=== PATIENT | female | born 1935 | race Caucasian/White ===

== ENCOUNTER 2016-10-26 13:09 | Emergency (ER) | payer OTHER, BC ==
--- NOTE | 2016-10-26 13:20 | PDOC ---
History of Present Illness - General Chief Complaint: Injury Stated Complaint: BACK PAIN Time Seen by Provider: 10/26/16 13:20 History Source: Patient - History of Present Illness Initial Comments: 10/26/16 13:53 Pt presents to the ED complaining of lower back pain that began after a trip and fall 5 days ago. Patient had a mechanical trip and fall and hit her lower back. Since then, she has been complaining of lower back pain. Pain is constant, severe, worse with twisting movements of the lower back. History of chronic lower back pain--states that this pain is similar to her chronic pain, but is worse than usual. Patient takes neurontin for her chronic pain, which she reports is not helping. Patient also reports decreased urine output--has only had " a few teaspoons" of urine every day for the last 5 days, despite taking lasix. Denies chest or abdominal pain, denies fever. 10/26/16 13:57 Past History - Past Medical History Allergies/Adverse Reactions: Allergies Allergy/AdvReac Type Severity Reaction Status Date / Time Fish Containing Products Allergy Mild Nausea Verified 10/26/16 13:17 [Fish Product Derivatives] lisinopril AdvReac cough Verified 10/26/16 13:17 ADHESIVE TAPE AdvReac Severe Rash Uncoded 10/26/16 13:17 Home Medications: Ambulatory Orders Vits A,C,E/Lutein/Minerals [Ocuvite With Lutein Tablet] 1 each PO AM tablet Levothyroxine [Synthroid -] 25 mcg PO DAILY 10/26/16 Losartan Potassium 50 mg PO DAILY 10/26/16 Rosuvastatin Calcium [Crestor] 10 mg PO ASDIR 10/26/16 Anemia: No Asthma: No Cancer: No Cardiac Disorders: Yes (Aortic Valve Replacement 2011) CVA: No COPD: No CHF: Yes Dementia: No Diabetes: No GI Disorders: No Disorders: No HTN: Yes Hypercholesterolemia: Yes Liver Disease: No Seizures: No Thyroid Disease: Yes - Surgical History Abdominal Surgery: No Appendectomy: No Cardiac Surgery: Yes (Aortic Valve Replacement) Cholecystectomy: No Lung Surgery: No Neurologic Surgery: No Orthopedic Surgery: No - Immunization History Td Vaccination: No - Psycho/Social/Smoking Cessation Hx Anxiety: No Suicidal Ideation: No Smoking Status: Yes Smoking History: Former smoker Years of Tobacco Use: 20 (stopped smoking 20 years ago) Have you smoked in the past 12 months: No Number of Cigarettes Smoked Daily: 0 If you are a former smoker, when did you quit?: 1990 Hx Alcohol Use: No Drug/Substance Use Hx: No Substance Use Type: None Hx Substance Use Treatment: No Review of Systems - Review of Systems Able to Perform ROS?: Yes Constitutional: No: Symptoms Reported, See HPI, Chills, Diaphoresis, Fever, Loss of Appetite, Malaise, Night Sweats, Weakness, Weight Stable, Unintentional Wgt. Loss, Unexplained wgt Loss, Other HEENTM: No: Symptoms Reported, See HPI, Eye Pain, Blurred Vision, Tearing, Recent change in vision, Double Vision, Cataracts, Ear Pain, Ocular Prothesis, Ear Discharge, Nose Pain, Nose Congestion, Tinnitus, Nose Bleeding, Hearing Loss , Throat Pain, Throat Swelling, Mouth Pain, Dental Problems, Difficulty Swallowing, Mouth Swelling, Other Respiratory: No: Symptoms reported, See HPI, Cough, Orthopnea, Shortness of Breath, SOB with Exertion, SOB at Rest, Stridor, Wheezing, Productive cough, Hemoptysis, Other ABD/GI: No: Symptoms Reported, See HPI, Abdominal Distended, Abd. Pain w/ defecation, Blood Streaked Bowels, Constipated, Diarrhea, Difficulty Swallowing , Nausea, Poor Appetite, Poor Fluid Intake, Rectal Bleeding, Vomiting, Indigestion, Abdominal cramping, Tarry Stools, Other All Other Systems: Reviewed and Negative *Physical Exam - Physical Exam General Appearance: Yes: Nourished, Appropriately Dressed HEENT: positive: EOMI, Normal ENT Inspection Neck: positive: Supple Respiratory/Chest: positive: Lungs Clear, Normal Breath Sounds Cardiovascular: positive: Regular Rhythm, Regular Rate, S1, S2 Gastrointestinal/Abdominal: positive: Normal Bowel Sounds. negative: Tender, Flat, Soft, Organomegaly, Pulsatile Mass, Increased Bowel Sounds, Decreased BS, Protuberent, Distended, Guarding, Rebound, Tenderness, Hernia, Mass, Hepatomegaly, Spleenomegaly, Other Musculoskeletal: positive: Decreased Range of Motion. negative: Normal Inspection, CVA Tenderness, CVA Tenderness (R), CVA Tenderness (L), Muscle Spasm , Vertebral Tenderness, Other Extremity: positive: Normal Inspection Integumentary: positive: Normal Color Neurologic: positive: Fully Oriented, Alert, Normal Mood/Affect, Motor Strength 5/5 ED Treatment Course - LABORATORY CBC & Chemistry Diagram: 10/26/16 13:59 10/26/16 13:59 Medical Decision Making - Medical Decision Making 10/26/16 14:00 Pt presents to the ED complaining of lower back pain consistent with, but worse than, her chronic lower back pain. Also complaining of decreased urine output. + tenderness over sacrum without deformity or ecchymosis on my exam. Neurologically intact. Will check labs to rule out renal disease, check xrays, give morphine, reassess. 10/26/16 16:50 *DC/Admit/Observation/Transfer Diagnosis at time of Disposition: Back pain Qualifiers: Back pain location: low back pain Chronicity: chronic Back pain laterality: bilateral Sciatica presence: without sciatica Qualified Code(s): M54.5 - Low back pain; G89.29 - Other chronic pain - Discharge Dispostion Disposition: HOME Condition at time of disposition: Good Admit: No - Patient Instructions Printed Discharge Instructions: DI for Low Back Pain Additional Instructions: return to the ED for severe pain, pain with fever, weakness or numbness of your legs or feet, unable to control your bowels or your bladder.
[2016-10-26 13:26] VITALS: TEMP 98.4; BMI 31.6
[2016-10-26] MEDS ORDERED: morphine CARPU-JECT 4 MG/1 ML DISP.SYRIN IVPUSH ONE (13:48)
[2016-10-26] MEDS ORDERED: morphine CARPU-JECT 4 MG/1 ML DISP.SYRIN ONE ×2 (14:01→16:33)
[2016-10-26 14:49] LABS: BASOPHIL 0.2 % (0-2.0); EOSINOPHIL 3.2 % (0-4.5); MCH 30.5 pg (25.7-33.7); MEAN CELL VOLUME 89.5 fl (80-96); MEAN PLT VOLUME 8.2 fl (7.5-11.1); NEUTROPHILS 75.9 % (42.8-82.8); PLATELET COUNT 191 K/MM3 (134-434); RDW 16.1 % (11.6-15.6); WHITE BLOOD COUNT 8.1 K/mm3 (4.0-10.8)
[2016-10-26 14:56] LABS: ALBUMIN 3.6 g/dl (3.5-5.0); ALK PHOS 71 U/L (32-92); ANION GAP 7 (8-16); BILIRUBIN,TOTAL 0.6 mg/dl (0.2-1.0); CALCIUM 8.9 mg/dl (8.4-10.2); CO2 27 mmol/L (22-28); CREATININE 0.7 mg/dl (0.6-1.3); GLUCOSE,RANDOM 115 mg/dl (74-106); SGOT/AST 16 U/L (10-42); SGPT/ALT 11 U/L (10-40); TOT PROT 6.2 g/dl (6.4-8.3)
[2016-10-26] MEDS ORDERED: KETOROLAC TROMETHAMINE 30 MG/1 ML VIAL IVPUSH ONE (15:20)
[2016-10-26] MEDS ORDERED: KETOROLAC TROMETHAMINE 30 MG/1 ML VIAL ONE (15:44)
[2016-10-26] MEDS ORDERED: morphine CARPU-JECT 2 MG/1 ML DISP.SYRIN IVPUSH ONE (16:23)
[2016-10-26] MEDS ORDERED: morphine CARPU-JECT 2 MG/1 ML DISP.SYRIN ONE (16:32)
[2016-10-26 17:10] VITALS: BP 132/55; PULSE 76
== END 2016-10-26 17:10 | disposition home or self-care (01) ==
LOC: FER 13:09
PROC: 3E0333Z Introduction of Anti-inflammatory into Peripheral Vein, Percutaneous Approach (ICD-10-PCS; principal; 2016-10-26)
PROC: 3E033NZ Introduction of Analgesics, Hypnotics, Sedatives into Peripheral Vein, Percutaneous Approach (ICD-10-PCS; 2016-10-26)
DX: M54.5 Low back pain (principal); G89.29 Other chronic pain; Z95.2 Presence of prosthetic heart valve; Z79.01 Long term (current) use of anticoagulants; I50.9 Heart failure, unspecified; Z87.891 Personal history of nicotine dependence
CPT/HCPCS: 36415; 72100-TC; 80053; 85025; 99284-25

== ENCOUNTER 2022-04-17 14:01 | Observation (INO) | payer OTHER, BC ==
[2022-04-17] MEDS ORDERED: ACETAMINOPHEN 325 MG TABLET (FP) PO ONE (14:30)
[2022-04-17] MEDS ORDERED: ACETAMINOPHEN 325 MG TABLET (FP) ONE (14:33)
[2022-04-17 16:21] LABS: HEMATOCRIT 29.5 % (32.4-45.2); HEMOGLOBIN 9.7 G/dL (10.7-15.3); MCH 30.1 pg (25.7-33.7); MCHC 32.8 g/dl (32.0-36.0); MEAN CELL VOLUME 91.7 fl (80-96); MEAN PLT VOLUME 8.8 fl (7.5-11.1); PLATELET COUNT 185.1 10^3/uL (134-434); RBC 3.22 10^6/uL (3.60-5.2); RDW 16.3 % (11.6-15.6); WHITE BLOOD COUNT 7.3 10^3/uL (4.0-10.8)
[2022-04-17 16:36] LABS: ALBUMIN 3.6 g/dl (3.4-5.0); BILIRUBIN,TOTAL 0.6 mg/dl (0.2-1); CALCIUM 8.9 mg/dl (8.5-10); CREATININE 0.9 mg/dl (0.55-1.3)
[2022-04-17 18:09] LABS: PLATELET ESTIMATE ADEQUATE
[2022-04-17 21:16] VITALS: BMI 28.6
[2022-04-17] MEDS: CARVEDILOL 6.25 MG TABLET (FP) PO SCH (21:46)
[2022-04-17] MEDS: ROSUVASTATIN CA 5 MG TABLET PO SCH (21:46)
[2022-04-17] MEDS: MEMANTINE HCL 10 MG TABLET (FP) PO SCH (21:46)
[2022-04-17] MEDS: GABAPENTIN 300 MG CAPSULE PO SCH (21:46)
[2022-04-17] MEDS ORDERED: traMADol HCL 50 MG TABLET PO SCH (22:00)
[2022-04-18] MEDS: GABAPENTIN 300 MG CAPSULE PO SCH ×3 (06:23→21:41)
[2022-04-18] MEDS ORDERED: traMADol HCL 50 MG TABLET PO PRN (07:17)
[2022-04-18 08:48] LABS: CALCIUM 8.6 mg/dl (8.5-10); CREATININE 0.8 mg/dl (0.55-1.3); MAGNESIUM 2.4 mg/dL (1.8-2.4)
[2022-04-18] MEDS: CARVEDILOL 6.25 MG TABLET (FP) PO SCH ×2 (09:15→21:41)
[2022-04-18] MEDS: PANTOPRAZOLE 40 MG TABLET PO SCH (09:15)
[2022-04-18] MEDS: FUROSEMIDE 40 MG TABLET (FP) PO SCH (09:15)
[2022-04-18] MEDS: ALLOPURINOL 300 MG TABLET (FP) PO SCH (09:16)
[2022-04-18] MEDS: RAMIPRIL 2.5 MG CAPSULE PO SCH (09:16)
[2022-04-18] MEDS: MEMANTINE HCL 10 MG TABLET (FP) PO SCH ×2 (09:16→21:41)
[2022-04-18] MEDS: DONEPEZIL HCL 5 MG TABLET (FP) PO SCH (09:16)
[2022-04-18] MEDS: ASPIRIN 81 MG CHEWABLE TABLETS PO SCH (09:16)
[2022-04-18 09:42] LABS: BASO % 0.8 % (0-2.0); EOS % 6.7 % (0-4.5); HEMATOCRIT 29.1 % (32.4-45.2); HEMOGLOBIN 9.5 GM/dL (10.7-15.3); LYMPH % 14.7 % (8-40); MCH 29.4 pg (25.7-33.7); MCHC 32.6 g/dl (32.0-36.0); MEAN CELL VOLUME 90.3 fl (80-96); MEAN PLT VOLUME 8.4 fl (7.5-11.1); NEUT % 65.8 % (42.8-82.8); PLATELET COUNT 179 10^3/uL (134-434); RBC 3.22 M/mm3 (3.60-5.2); RDW 17.2 % (11.6-15.6); WHITE BLOOD COUNT 5.4 K/mm3 (4.0-10.0)
[2022-04-18 09:47] LABS: EPITHELIAL CELLS FEW /hpf
[2022-04-18] MEDS: ACETAMINOPHEN 500 MG TABLET (FP) PO PRN ×2 (14:56→21:41)
[2022-04-18] MEDS: ROSUVASTATIN CA 5 MG TABLET PO SCH (21:41)
[2022-04-19] MEDS: GABAPENTIN 300 MG CAPSULE PO SCH ×3 (06:07→21:32)
[2022-04-19 08:35] LABS: CALCIUM 8.8 mg/dl (8.5-10); CREATININE 0.7 mg/dl (0.55-1.3); MAGNESIUM 2.2 mg/dL (1.8-2.4); PHOSPHOROUS 3.3 mg/dl (2.5-4.9)
[2022-04-19 09:29] LABS: BASO % 0.9 % (0-2.0); EOS % 8.1 % (0-4.5); HEMATOCRIT 28.7 % (32.4-45.2); HEMOGLOBIN 9.1 GM/dL (10.7-15.3); LYMPH % 19.5 % (8-40); MCH 28.9 pg (25.7-33.7); MCHC 31.8 g/dl (32.0-36.0); MEAN CELL VOLUME 90.9 fl (80-96); MEAN PLT VOLUME 7.8 fl (7.5-11.1); MONO % 12.1 % (3.8-10.2); NEUT % 59.4 % (42.8-82.8); PLATELET COUNT 178 10^3/uL (134-434); RBC 3.16 M/mm3 (3.60-5.2); RDW 17.2 % (11.6-15.6); WHITE BLOOD COUNT 4.7 K/mm3 (4.0-10.0)
[2022-04-19] MEDS: MEMANTINE HCL 10 MG TABLET (FP) PO SCH ×2 (09:36→21:31)
[2022-04-19] MEDS: ASPIRIN 81 MG CHEWABLE TABLETS PO SCH (09:36)
[2022-04-19] MEDS: DONEPEZIL HCL 5 MG TABLET (FP) PO SCH (09:36)
[2022-04-19] MEDS: RAMIPRIL 2.5 MG CAPSULE PO SCH (09:36)
[2022-04-19] MEDS: FUROSEMIDE 40 MG TABLET (FP) PO SCH (09:36)
[2022-04-19] MEDS: CARVEDILOL 6.25 MG TABLET (FP) PO SCH ×2 (09:36→21:32)
[2022-04-19] MEDS: PANTOPRAZOLE 40 MG TABLET PO SCH (09:36)
[2022-04-19] MEDS: ALLOPURINOL 300 MG TABLET (FP) PO SCH (09:37)
[2022-04-19] MEDS: ENOXAPARIN NA (PORCINE) 40 MG/0.4 ML DISP.SYRIN SQ SCH (10:48)
[2022-04-19] MEDS: ROSUVASTATIN CA 5 MG TABLET PO SCH (21:31)
[2022-04-19 21:40] VITALS: RESP 17
[2022-04-20] MEDS: DOCUSATE SODIUM 100 MG CAPSULE (FP) PO SCH ×2 (06:18→13:08)
[2022-04-20] MEDS: GABAPENTIN 300 MG CAPSULE PO SCH ×2 (06:18→13:08)
[2022-04-20] MEDS: CARVEDILOL 6.25 MG TABLET (FP) PO SCH (09:29)
[2022-04-20] MEDS: ALLOPURINOL 300 MG TABLET (FP) PO SCH (09:29)
[2022-04-20] MEDS: ASPIRIN 81 MG CHEWABLE TABLETS PO SCH (09:30)
[2022-04-20] MEDS: ENOXAPARIN NA (PORCINE) 40 MG/0.4 ML DISP.SYRIN SQ SCH (09:30)
[2022-04-20] MEDS: DONEPEZIL HCL 5 MG TABLET (FP) PO SCH (09:30)
[2022-04-20] MEDS: FUROSEMIDE 40 MG TABLET (FP) PO SCH (09:30)
[2022-04-20] MEDS: RAMIPRIL 2.5 MG CAPSULE PO SCH (09:30)
[2022-04-20] MEDS: MEMANTINE HCL 10 MG TABLET (FP) PO SCH (09:30)
[2022-04-20] MEDS: PANTOPRAZOLE 40 MG TABLET PO SCH (09:30)
[2022-04-20 13:28] VITALS: BP 161/50; PULSE 79; TEMP 98.3
== END 2022-04-20 14:10 ==
LOC: FER 14:01 → FM/S 18:05
PROVIDERS: ADMIT Internal Medicine; ATTEND Internal Medicine
PROC: 3E023GC Introduction of Other Therapeutic Substance into Muscle, Percutaneous Approach (ICD-10-PCS; principal; 2022-04-17)
DX: M79.671 Pain in right foot (principal); W10.9XXA Fall (on) (from) unspecified stairs and steps, initial encounter; F03.90 Unspecified dementia, unspecified severity, without behavioral disturbance, psychotic disturbance, mood disturbance, and anxiety; Y93.89 Activity, other specified; Y92.098 Other place in other non-institutional residence as the place of occurrence of the external cause; I11.0 Hypertensive heart disease with heart failure; I50.9 Heart failure, unspecified; R77.8 Other specified abnormalities of plasma proteins; E78.5 Hyperlipidemia, unspecified; Z91.09 Other allergy status, other than to drugs and biological substances; Z91.013 Allergy to seafood; Z88.8 Allergy status to other drugs, medicaments and biological substances
CPT/HCPCS: 0241U-QW; 36415; 70450-TC; 71045-TC-FY; 72125-TC; 72170-TC-FY; 73610-TC-RT-FY; 73630-TC-RT-FY; 73700-TC-RT; 80048; 80053; 81003; 81015; 82607; 82746; 83735; 84100; 84439; 84443; 84484; 85025; 85027; 93005; 96372; 97116-GP; 97162-GP; 99285-25; G0378

== ENCOUNTER 2022-08-21 20:31 | Emergency (ER) | payer OTHER, BC ==
[2022-08-21] MEDS ORDERED: DIPHTH,PERTUSS(ACELL),TET 0.5 ML DISP.SYRIN IM ONE ×2 (20:37→20:54)
[2022-08-21 20:56] VITALS: BP 142/78; PULSE 72; RESP 18; TEMP 98.4; BMI 31.9
== END 2022-08-21 21:06 | disposition home or self-care (01) ==
LOC: FER 20:31
PROC: 3E0234Z Introduction of Serum, Toxoid and Vaccine into Muscle, Percutaneous Approach (ICD-10-PCS; principal; 2022-08-21)
DX: S61.213A Laceration without foreign body of left middle finger without damage to nail, initial encounter (principal); W27.2XXA Contact with scissors, initial encounter
CPT/HCPCS: 90471; 90715; 99282-25

== ENCOUNTER 2022-11-01 12:28 | Inpatient (IN) | payer OTHER, BC ==
[2022-11-01] MEDS ORDERED: SODIUM CHLORIDE 500 ML IV STA (12:55)
[2022-11-01 13:33] LABS: INR 1.22 (0.83-1.09); PROTHROMBIN TIME (PATIENT) 14.1 SEC (9.7-13.0)
[2022-11-01 13:36] LABS: ACTIVATED PTT 29.8 SECONDS (25.2-36.5)
[2022-11-01 13:37] LABS: HEMATOCRIT 26.5 % (32.4-45.2); HEMOGLOBIN 8.4 G/dL (10.7-15.3); MCH 28.4 pg (25.7-33.7); MCHC 31.7 g/dl (32.0-36.0); MEAN CELL VOLUME 89.6 fl (80-96); MEAN PLT VOLUME 9.3 fl (7.5-11.1); PLATELET COUNT 233.3 10^3/uL (134-434); RBC 2.96 10^6/uL (3.60-5.2); RDW 17.4 % (11.6-15.6); WHITE BLOOD COUNT 10.5 10^3/uL (4.0-10.8)
[2022-11-01 13:46] LABS: ALBUMIN 3.1 g/dl (3.4-5.0); BLOOD UREA NITROGEN 59.5 mg/dl (7-18); CALCIUM 8.9 mg/dl (8.5-10.1); CREATININE 1.1 mg/dl (0.6-1.3); POTASSIUM 3.6 mmol/L (3.5-5.1); SGOT/AST 31.8 U/L (15-37); SGPT/ALT 19.1 U/L (7-52); TOT PROT 5.6 g/dl (6.4-8.2)
[2022-11-01 14:06] LABS: PLATELET ESTIMATE ADEQUATE
[2022-11-01] MEDS ORDERED: ASPIRIN 81 MG CHEWABLE TABLETS PO ONE (14:49)
[2022-11-01 15:01] LABS: VENOUS BASE EXCESS 5.4 mmol/L (-2-2); VENOUS O2 SATURATION 51.7 % (70-80); VENOUS PCO2 49.5 mmHg (38-52); VENOUS PH 7.415 (7.310-7.410)
[2022-11-01] MEDS ORDERED: ASPIRIN 81 MG CHEWABLE TABLETS ONE (15:03)
[2022-11-01 15:12] LABS: BILIRUBIN,TOTAL 0.3 mg/dL (0.2-1)
[2022-11-01 15:39] LABS: N-TERMINAL BNP 6216.4 pg/ml (5-450)
[2022-11-01] MEDS ORDERED: ATORVASTATIN CA 40 MG TABLET (FP) PO ONE (16:43)
[2022-11-01 17:00] LABS: MAGNESIUM 2.2 mg/dL (1.8-2.4); PHOSPHOROUS 3.75 (2.5-4.9)
[2022-11-01] MEDS ORDERED: ATORVASTATIN CA 20 MG TABLET (FP) ONE (17:12)
[2022-11-01 21:06] VITALS: BMI 29.1
[2022-11-01] MEDS: CARVEDILOL 6.25 MG TABLET (FP) PO SCH (21:39)
[2022-11-01] MEDS: MEMANTINE HCL 10 MG TABLET (FP) PO SCH (21:39)
[2022-11-01] MEDS ORDERED: CARVEDILOL 6.25 MG TABLET (FP) PO SCH (22:00)
[2022-11-02 08:22] LABS: HEMOGLOBIN 8.4 GM/dL (10.7-15.3); MCH 27.3 pg (25.7-33.7); MCHC 32.3 g/dl (32.0-36.0); MEAN CELL VOLUME 84.5 fl (80-96); MEAN PLT VOLUME 8.9 fl (7.5-11.1); PLATELET COUNT 200 10^3/uL (134-434); RBC 3.08 M/mm3 (3.60-5.2); RDW 16.7 % (11.6-15.6); WHITE BLOOD COUNT 7.3 K/mm3 (4.0-10.0)
[2022-11-02] MEDS ORDERED: CEFTRIAXONE 1 GM in DEXTROSE 5%-WATER - 50 ML IVPB ONE ×2 (08:47→11:29)
[2022-11-02 08:51] LABS: ALBUMIN 2.5 g/dl (3.4-5.0); BILIRUBIN,TOTAL 0.6 mg/dL (0.2-1); BLOOD UREA NITROGEN 40.4 mg/dL (7-18); CALCIUM 8.7 mg/dL (8.5-10.1); CREATININE 0.6 mg/dL (0.55-1.3); MAGNESIUM 2.4 mg/dL (1.8-2.4); PHOSPHOROUS 3.1 mg/dL (2.5-4.9); POTASSIUM 3.4 mmol/L (3.5-5.1); TOT PROT 5.5 g/dl (6.4-8.2)
[2022-11-02] MEDS ORDERED: POTASSIUM CHLORIDE ORAL LIQUID 20 MEQ/15 ML PO ONE (08:52)
[2022-11-02] MEDS ORDERED: FUROSEMIDE 40 MG TABLET (FP) PO SCH (10:00)
[2022-11-02] MEDS: MEMANTINE HCL 10 MG TABLET (FP) PO SCH ×2 (10:38→21:51)
[2022-11-02] MEDS: CARVEDILOL 6.25 MG TABLET (FP) PO SCH ×2 (10:38→21:51)
[2022-11-02] MEDS: ALLOPURINOL 300 MG TABLET (FP) PO SCH (10:39)
[2022-11-02] MEDS: ASPIRIN COATED 81 MG TABLET.EC PO SCH (10:39)
[2022-11-02] MEDS ORDERED: VANCOMYCIN/WATER FOR INJ (PEG) 1,000 MG/200 ML BAG IVPB ONE (11:30)
[2022-11-02] MEDS ORDERED: GENTAMICIN INJECTION 200 MG in SODIUM CHLORIDE 100 ML IVPB ONE (12:00)
[2022-11-02] MEDS: DONEPEZIL HCL 5 MG TABLET (FP) PO SCH (21:54)
[2022-11-03 07:54] LABS: BASO % 0.8 % (0-2.0); EOS % 4.1 % (0-4.5); HEMATOCRIT 25.5 % (32.4-45.2); HEMOGLOBIN 8.2 GM/dL (10.7-15.3); LYMPH % 8.9 % (8-40); MCH 27.7 pg (25.7-33.7); MCHC 32.1 g/dl (32.0-36.0); MEAN CELL VOLUME 86.2 fl (80-96); MEAN PLT VOLUME 9.3 fl (7.5-11.1); MONO % 8.1 % (3.8-10.2); NEUT % 78.1 % (42.8-82.8); PLATELET COUNT 202 10^3/uL (134-434); RBC 2.96 M/mm3 (3.60-5.2); RDW 16.2 % (11.6-15.6); WHITE BLOOD COUNT 6.6 K/mm3 (4.0-10.0)
[2022-11-03 08:10] LABS: POTASSIUM 3.8 mmol/L (3.5-5.1)
[2022-11-03 08:16] LABS: ALBUMIN 2.4 g/dl (3.4-5.0)
[2022-11-03 08:17] LABS: BLOOD UREA NITROGEN 21.2 mg/dL (7-18); CALCIUM 8.3 mg/dL (8.5-10.1); MAGNESIUM 2.2 mg/dL (1.8-2.4)
[2022-11-03 08:19] LABS: PHOSPHOROUS 2.5 mg/dL (2.5-4.9)
[2022-11-03 08:20] LABS: CREATININE 0.4 mg/dL (0.55-1.3); TOT PROT 5.4 g/dl (6.4-8.2)
[2022-11-03 08:21] LABS: BILIRUBIN,TOTAL 0.4 mg/dL (0.2-1)
[2022-11-03] MEDS: ASPIRIN COATED 81 MG TABLET.EC PO SCH (10:41)
[2022-11-03] MEDS: CARVEDILOL 6.25 MG TABLET (FP) PO SCH ×2 (10:41→22:25)
[2022-11-03] MEDS: ALLOPURINOL 300 MG TABLET (FP) PO SCH (10:41)
[2022-11-03] MEDS: MEMANTINE HCL 10 MG TABLET (FP) PO SCH ×2 (10:41→22:25)
[2022-11-03] MEDS: CEFTRIAXONE 2 GM in DEXTROSE 5%-WATER 100 ML IVPB SCH (10:58)
[2022-11-03 11:52] LABS: INR 1.28 (0.83-1.09); PROTHROMBIN TIME (PATIENT) 14.8 SEC (9.7-13.0)
[2022-11-03] MEDS ORDERED: VANCOMYCIN/WATER FOR INJ (PEG) 1,000 MG/200 ML BAG IVPB ONE (15:00)
[2022-11-03] MEDS: QUEtiapine FUMARATE 25 MG TABLET PO PRN (18:28)
[2022-11-03] MEDS: DONEPEZIL HCL 5 MG TABLET (FP) PO SCH (22:25)
[2022-11-04] MEDS: ALLOPURINOL 300 MG TABLET (FP) PO SCH (10:37)
[2022-11-04] MEDS: ASPIRIN COATED 81 MG TABLET.EC PO SCH (10:37)
[2022-11-04] MEDS: CARVEDILOL 6.25 MG TABLET (FP) PO SCH ×2 (10:37→21:54)
[2022-11-04] MEDS: MEMANTINE HCL 10 MG TABLET (FP) PO SCH ×2 (10:37→21:55)
[2022-11-04] MEDS: CEFTRIAXONE 2 GM in DEXTROSE 5%-WATER 100 ML IVPB SCH (10:37)
[2022-11-04] MEDS: ARTIFICIAL TEARS (POLYVINYL ALCOHOL) OPTH DROPS OU SCH ×4 (12:00→21:59)
[2022-11-04] MEDS: QUEtiapine FUMARATE 25 MG TABLET PO PRN (21:54)
[2022-11-04] MEDS: DONEPEZIL HCL 5 MG TABLET (FP) PO SCH (21:56)
[2022-11-05] MEDS: ARTIFICIAL TEARS (POLYVINYL ALCOHOL) OPTH DROPS OU SCH ×3 (07:15→21:58)
[2022-11-05 09:41] LABS: BASO % 0.8 % (0-2.0); EOS % 4.1 % (0-4.5); HEMATOCRIT 27.9 % (32.4-45.2); HEMOGLOBIN 9.1 GM/dL (10.7-15.3); LYMPH % 8.7 % (8-40); MCH 27.5 pg (25.7-33.7); MCHC 32.6 g/dl (32.0-36.0); MEAN CELL VOLUME 84.5 fl (80-96); MEAN PLT VOLUME 8.8 fl (7.5-11.1); MONO % 6.5 % (3.8-10.2); NEUT % 79.9 % (42.8-82.8); PLATELET COUNT 204 10^3/uL (134-434); RDW 16.8 % (11.6-15.6); WHITE BLOOD COUNT 8.3 K/mm3 (4.0-10.0)
[2022-11-05 10:14] LABS: POTASSIUM 3.6 mmol/L (3.5-5.1)
[2022-11-05] MEDS: CEFTRIAXONE 2 GM in DEXTROSE 5%-WATER 100 ML IVPB SCH (10:17)
[2022-11-05] MEDS: MEMANTINE HCL 10 MG TABLET (FP) PO SCH ×2 (10:18→21:57)
[2022-11-05] MEDS: CARVEDILOL 6.25 MG TABLET (FP) PO SCH ×2 (10:18→21:57)
[2022-11-05] MEDS: ALLOPURINOL 300 MG TABLET (FP) PO SCH (10:18)
[2022-11-05] MEDS: ASPIRIN COATED 81 MG TABLET.EC PO SCH (10:18)
[2022-11-05 10:22] LABS: ALBUMIN 2.5 g/dl (3.4-5.0); BLOOD UREA NITROGEN 10.6 mg/dL (7-18); CALCIUM 8.5 mg/dL (8.5-10.1)
[2022-11-05 10:25] LABS: CREATININE 0.4 mg/dL (0.55-1.3); PHOSPHOROUS 2.7 mg/dL (2.5-4.9)
[2022-11-05 10:27] LABS: BILIRUBIN,TOTAL 0.6 mg/dL (0.2-1); TOT PROT 5.7 g/dl (6.4-8.2)
[2022-11-05] MEDS: DONEPEZIL HCL 5 MG TABLET (FP) PO SCH (21:57)
[2022-11-06] MEDS: ARTIFICIAL TEARS (POLYVINYL ALCOHOL) OPTH DROPS OU SCH ×3 (05:14→21:51)
[2022-11-06 08:30] LABS: HEMATOCRIT 27.9 % (32.4-45.2); MCH 27.1 pg (25.7-33.7); MCHC 32.2 g/dl (32.0-36.0); MEAN CELL VOLUME 84.3 fl (80-96); MEAN PLT VOLUME 8.9 fl (7.5-11.1); PLATELET COUNT 226 10^3/uL (134-434); RBC 3.31 M/mm3 (3.60-5.2); RDW 16.7 % (11.6-15.6)
[2022-11-06 08:35] LABS: INR 1.26 (0.83-1.09); PROTHROMBIN TIME (PATIENT) 14.6 SEC (9.7-13.0)
[2022-11-06] MEDS: CEFTRIAXONE 2 GM in DEXTROSE 5%-WATER 100 ML IVPB SCH (09:33)
[2022-11-06] MEDS: ALLOPURINOL 300 MG TABLET (FP) PO SCH (09:33)
[2022-11-06] MEDS: MEMANTINE HCL 10 MG TABLET (FP) PO SCH ×2 (09:33→21:45)
[2022-11-06] MEDS: CARVEDILOL 6.25 MG TABLET (FP) PO SCH ×2 (09:33→21:45)
[2022-11-06] MEDS: ASPIRIN COATED 81 MG TABLET.EC PO SCH (09:33)
[2022-11-06] MEDS: DONEPEZIL HCL 5 MG TABLET (FP) PO SCH (21:45)
[2022-11-06] MEDS: QUEtiapine FUMARATE 25 MG TABLET PO PRN (21:45)
[2022-11-07] MEDS: ARTIFICIAL TEARS (POLYVINYL ALCOHOL) OPTH DROPS OU SCH ×2 (06:59→15:02)
[2022-11-07] MEDS: MEMANTINE HCL 10 MG TABLET (FP) PO SCH (10:28)
[2022-11-07] MEDS: ALLOPURINOL 300 MG TABLET (FP) PO SCH (10:28)
[2022-11-07] MEDS: ASPIRIN COATED 81 MG TABLET.EC PO SCH (10:28)
[2022-11-07] MEDS: CEFTRIAXONE 2 GM in DEXTROSE 5%-WATER 100 ML IVPB SCH (10:28)
[2022-11-07] MEDS: CARVEDILOL 6.25 MG TABLET (FP) PO SCH (10:28)
[2022-11-07] MEDS ORDERED: HEPARIN NA (PORCINE) 5,000 UNITS/ML 1ML VIAL SQ SCH (14:00)
[2022-11-07 18:55] VITALS: BP 143/69; PULSE 75; RESP 20; TEMP 97.7
== END 2022-11-07 19:41 | DRG 315 ==
LOC: FER 12:28 → J4W 18:35
PROVIDERS: ADMIT Internal Medicine
DX: T82.6XXA Infection and inflammatory reaction due to cardiac valve prosthesis, initial encounter (principal); I13.0 Hypertensive heart and chronic kidney disease with heart failure and stage 1 through stage 4 chronic kidney disease, or unspecified chronic kidney disease; N39.0 Urinary tract infection, site not specified; I24.8 Other forms of acute ischemic heart disease; I50.32 Chronic diastolic (congestive) heart failure; R78.81 Bacteremia; Y83.8 Other surgical procedures as the cause of abnormal reaction of the patient, or of later complication, without mention of misadventure at the time of the procedure; B95.2 Enterococcus as the cause of diseases classified elsewhere; F03.90 Unspecified dementia, unspecified severity, without behavioral disturbance, psychotic disturbance, mood disturbance, and anxiety; N18.9 Chronic kidney disease, unspecified; R77.8 Other specified abnormalities of plasma proteins; M10.9 Gout, unspecified; B95.4 Other streptococcus as the cause of diseases classified elsewhere
CPT/HCPCS: 0241U-QW; 36415; 36430; 36569; 71045-TC-FY; 77001-TC-FY; 80053; 80061; 80170; 81003; 81015; 82272; 82553; 82803; 83036; 83605; 83735; 83880; 84100; 84443; 84484; 85025; 85027; 85610; 85651; 85730; 86140; 86850; 86900; 86901; 86922; 87040; 87086; 87186; 93306-TC; 97116-GP; 97162-GP; 99291; C1751; G0480; J1644; P9038; P9058

== ENCOUNTER 2023-02-18 10:59 | Inpatient (IN) | payer OTHER, BC ==
[2023-02-18 12:07] LABS: BASO % 0.2 % (0-2.0); EOS % 0.8 % (0-4.5); HEMATOCRIT 34.8 % (32.4-45.2); HEMOGLOBIN 10.8 GM/dL (10.7-15.3); LYMPH % 8.3 % (8-40); MCH 27.7 pg (25.7-33.7); MCHC 31.1 g/dl (32.0-36.0); MEAN PLT VOLUME 8.7 fl (7.5-11.1); MONO % 5.6 % (3.8-10.2); NEUT % 85.1 % (42.8-82.8); PLATELET COUNT 330 10^3/uL (134-434); RBC 3.91 M/mm3 (3.60-5.2); RDW 18.8 % (11.6-15.6); WHITE BLOOD COUNT 9.8 K/mm3 (4.0-10.0)
[2023-02-18 12:13] LABS: INR 1.1 (0.83-1.09); PROTHROMBIN TIME (PATIENT) 12.8 SEC (9.7-13.0)
[2023-02-18] MEDS ORDERED: DEXAMETHASONE SOD PHOSPHATE 10 MG/1 ML VIAL ONE (12:14)
[2023-02-18 12:16] LABS: ACTIVATED PTT 27.7 SECONDS (25.2-36.5)
[2023-02-18] MEDS ORDERED: DEXAMETHASONE SOD PHOSPHATE 20 MG/5 ML VIAL IVPB ONE (12:19)
[2023-02-18 12:20] LABS: VENOUS BASE EXCESS 9.1 mmol/L (-2-2); VENOUS O2 SATURATION 46.4 % (70-80); VENOUS PH 7.223 (7.310-7.410)
[2023-02-18 12:22] LABS: VENOUS PCO2 98.9 mmHg (38-52)
[2023-02-18 12:24] LABS: POTASSIUM 4.4 mmol/L (3.5-5.1)
[2023-02-18 12:26] LABS: CALCIUM 8.9 mg/dL (8.5-10.1)
[2023-02-18 12:27] LABS: ALBUMIN 2.8 g/dl (3.4-5.0); BLOOD UREA NITROGEN 48.4 mg/dL (7-18)
[2023-02-18 12:31] LABS: TOT PROT 6.6 g/dl (6.4-8.2)
[2023-02-18 12:32] LABS: BILIRUBIN,TOTAL 0.3 mg/dL (0.2-1)
[2023-02-18] MEDS ORDERED: AZITHROMYCIN IVPB 250 MG in DEXTROSE 5%-WATER - 250 ML IVPB ONE (13:00)
[2023-02-18] MEDS ORDERED: VANCOMYCIN 1,000 MG in DEXTROSE 5%-WATER - 250 ML IVPB ONE (13:00)
[2023-02-18] MEDS ORDERED: PIPERACILLIN/TAZOB 4.5 GM 4.5 GM/100 ML BAG IVPB ONE (13:13)
[2023-02-18] MEDS ORDERED: AZITHROMYCIN IVPB 500 MG/250 ML BAG IVPB ONE (13:13)
[2023-02-18] MEDS ORDERED: VANCOMYCIN 1 GRAM (PRE-DOCKED) 1,000 MG/250 ML BAG IVPB ONE (13:13)
[2023-02-18] MEDS: PIPERACILLIN/TAZOB 4.5 GM 4.5 GM in DEXTROSE 5%-WATER 100 ML IVPB ONE ×3 (13:28→13:40)
[2023-02-18] MEDS: ALBUTEROL SO4 2.5/IPRATROPIUM 0.5 INH SOL 3 ML VIAL.NEB. NEB SCH (13:29)
[2023-02-18] MEDS ORDERED: SODIUM CHLORIDE 0.9% 500 ML INFUS.BAG IV ONE (13:50)
[2023-02-18] MEDS ORDERED: ALBUTEROL SO4 HFA INHALER IH PRN (16:26)
[2023-02-18] MEDS ORDERED: ACETAMINOPHEN 1000 MG/100 ML BAG IVPB PRN (16:26)
[2023-02-18] MEDS ORDERED: REMDESIVIR 200 MG in SODIUM CHLORIDE 250 ML IVPB ONE (17:00)
[2023-02-18] MEDS ORDERED: PIPERACILLIN/TAZOB 2.25 GM 2.25 GM/50 ML BAG IVPB ONE (17:39)
[2023-02-18] MEDS: PIPERACILLIN/TAZOB 2.25 GM 2.25 GM in DEXTROSE 5%-WATER - 50 ML IVPB SCH (17:42)
[2023-02-18] MEDS ORDERED: PIPERACILLIN/TAZOB 2.25 GM 2.25 GM in DEXTROSE 5%-WATER - 50 ML IVPB SCH (18:00)
[2023-02-18 18:01] LABS: EPI CELLS >36 /uL (0-25.1); HYALINE CASTS 2 /uL (0-3.1); URINE APPEARANCE CLOUDY; URINE BACTERIA 24 /uL (0-1359); URINE BILIRUBIN NEGATIVE (NEGATIVE); URINE COLOR YELLOW; URINE GLUCOSE (UA) NEGATIVE (NEGATIVE); URINE KETONE NEGATIVE (NEGATIVE); URINE LEUK ESTERASE 1+ (NEGATIVE); URINE NITRITE NEGATIVE (NEGATIVE); URINE PROTEIN TRACE (NEGATIVE); URINE UROBILINOGEN 0.2 mg/dL (0.2-1.0); URINE WBC 73 /uL (0-25.8)
[2023-02-18 22:08] LABS: YEAST NONE SEEN (NEGATIVE)
[2023-02-18] MEDS ORDERED: HEPARIN NA (PORCINE) 5,000 UNITS/ML 1ML VIAL ONE (22:18)
[2023-02-18] MEDS ORDERED: CARVEDILOL 6.25 MG TABLET (FP) ONE (22:18)
[2023-02-18] MEDS: HEPARIN NA (PORCINE) 5,000 UNITS/ML 1ML VIAL SQ SCH (22:33)
[2023-02-18] MEDS: CARVEDILOL 6.25 MG TABLET (FP) PO SCH (22:55)
[2023-02-18] MEDS: MEMANTINE HCL 10 MG TABLET (FP) PO SCH (22:55)
[2023-02-19] MEDS ORDERED: PIPERACILLIN/TAZOB 2.25 GM 2.25 GM/50 ML BAG IVPB ONE (02:26)
[2023-02-19] MEDS: PIPERACILLIN/TAZOB 2.25 GM 2.25 GM in DEXTROSE 5%-WATER - 50 ML IVPB SCH ×2 (02:31→10:23)
[2023-02-19] MEDS ORDERED: FUROSEMIDE 40 MG TABLET (FP) PO SCH (10:00)
[2023-02-19] MEDS: DEXAMETHASONE SOD PHOSPHATE 10 MG/1 ML VIAL IVPUSH SCH (10:23)
[2023-02-19] MEDS: HEPARIN NA (PORCINE) 5,000 UNITS/ML 1ML VIAL SQ SCH ×2 (10:23→21:01)
[2023-02-19] MEDS: CARVEDILOL 6.25 MG TABLET (FP) PO SCH ×2 (10:26→21:04)
[2023-02-19] MEDS: MEMANTINE HCL 10 MG TABLET (FP) PO SCH ×2 (11:00→21:02)
[2023-02-19] MEDS: ASPIRIN COATED 81 MG TABLET.EC PO SCH (11:00)
[2023-02-19] MEDS: ALLOPURINOL 300 MG TABLET (FP) PO SCH (11:00)
[2023-02-19] MEDS: RAMIPRIL 2.5 MG CAPSULE PO SCH ×2 (11:05→11:59)
[2023-02-19] MEDS ORDERED: DEXAMETHASONE SOD PHOSPHATE 10 MG/1 ML VIAL IVPUSH ONE (11:23)
[2023-02-19 12:51] VITALS: BMI 22.1
[2023-02-19] MEDS: NYSTATIN 100,000 UNIT/GM TOPICAL CREAM 15 GM TUBE TP SCH ×2 (18:00→23:35)
[2023-02-19] MEDS: PIPERACILLIN/TAZOB 3.375 GM 3.375 GM in DEXTROSE 5%-WATER - 50 ML IVPB SCH (20:47)
[2023-02-20] MEDS: guaiFENesin/D-METHORPHAN HB 10 ML UNIT-DOSE CUPS PO PRN ×2 (01:08→21:18)
[2023-02-20] MEDS: PIPERACILLIN/TAZOB 3.375 GM 3.375 GM in DEXTROSE 5%-WATER - 50 ML IVPB SCH ×3 (02:56→17:38)
[2023-02-20] MEDS: NYSTATIN 100,000 UNIT/GM TOPICAL CREAM 15 GM TUBE TP SCH ×4 (05:22→23:32)
[2023-02-20 07:32] LABS: BASO % 0.2 % (0-2.0); EOS % 0.9 % (0-4.5); HEMATOCRIT 26.2 % (32.4-45.2); HEMOGLOBIN 8.4 GM/dL (10.7-15.3); LYMPH % 9.6 % (8-40); MCH 28.2 pg (25.7-33.7); MEAN CELL VOLUME 87.8 fl (80-96); MONO % 7.8 % (3.8-10.2); NEUT % 81.5 % (42.8-82.8); PLATELET COUNT 214 10^3/uL (134-434); RBC 2.98 M/mm3 (3.60-5.2); RDW 18.5 % (11.6-15.6); WHITE BLOOD COUNT 7.1 K/mm3 (4.0-10.0)
[2023-02-20 09:13] LABS: POTASSIUM 3.9 mmol/L (3.5-5.1)
[2023-02-20 09:14] LABS: BLOOD UREA NITROGEN 42.9 mg/dL (7-18); CALCIUM 8.1 mg/dL (8.5-10.1); MAGNESIUM 2.6 mg/dL (1.8-2.4)
[2023-02-20 09:17] LABS: CREATININE 0.8 mg/dL (0.55-1.3)
[2023-02-20] MEDS: ALLOPURINOL 300 MG TABLET (FP) PO SCH (10:30)
[2023-02-20] MEDS ORDERED: CARVEDILOL 3.125 MG TABLET (FP) PO SCH (10:33)
[2023-02-20] MEDS: ASPIRIN COATED 81 MG TABLET.EC PO SCH (10:35)
[2023-02-20] MEDS: MEMANTINE HCL 10 MG TABLET (FP) PO SCH ×2 (10:35→21:15)
[2023-02-20] MEDS: DEXAMETHASONE SOD PHOSPHATE 10 MG/1 ML VIAL IVPUSH SCH (10:36)
[2023-02-20] MEDS: HEPARIN NA (PORCINE) 5,000 UNITS/ML 1ML VIAL SQ SCH ×2 (10:37→21:15)
[2023-02-20] MEDS: ASCORBIC ACID 250 MG TABLET (FP) PO SCH (17:38)
[2023-02-21] MEDS: PIPERACILLIN/TAZOB 3.375 GM 3.375 GM in DEXTROSE 5%-WATER - 50 ML IVPB SCH ×3 (01:02→18:34)
[2023-02-21] MEDS: NYSTATIN 100,000 UNIT/GM TOPICAL CREAM 15 GM TUBE TP SCH ×3 (06:03→18:43)
[2023-02-21] MEDS: ASCORBIC ACID 250 MG TABLET (FP) PO SCH (09:50)
[2023-02-21] MEDS: ASPIRIN COATED 81 MG TABLET.EC PO SCH (09:50)
[2023-02-21] MEDS: MEMANTINE HCL 10 MG TABLET (FP) PO SCH ×2 (09:50→22:13)
[2023-02-21] MEDS: ALLOPURINOL 300 MG TABLET (FP) PO SCH (09:50)
[2023-02-21] MEDS: HEPARIN NA (PORCINE) 5,000 UNITS/ML 1ML VIAL SQ SCH ×2 (09:51→22:13)
[2023-02-21] MEDS: DEXAMETHASONE SOD PHOSPHATE 10 MG/1 ML VIAL IVPUSH SCH (09:51)
[2023-02-21] MEDS: MULTIVITAMINS THER W-MINERALS COMBO TABLET (FP) PO SCH (15:13)
[2023-02-22] MEDS: PIPERACILLIN/TAZOB 3.375 GM 3.375 GM in DEXTROSE 5%-WATER - 50 ML IVPB SCH ×3 (01:33→17:23)
[2023-02-22] MEDS: NYSTATIN 100,000 UNIT/GM TOPICAL CREAM 15 GM TUBE TP SCH ×4 (01:36→17:24)
[2023-02-22] MEDS: guaiFENesin/D-METHORPHAN HB 10 ML UNIT-DOSE CUPS PO PRN (03:38)
[2023-02-22] MEDS: HEPARIN NA (PORCINE) 5,000 UNITS/ML 1ML VIAL SQ SCH ×2 (09:51→21:11)
[2023-02-22] MEDS: ASPIRIN COATED 81 MG TABLET.EC PO SCH (09:51)
[2023-02-22] MEDS: ASCORBIC ACID 250 MG TABLET (FP) PO SCH (09:51)
[2023-02-22] MEDS: MEMANTINE HCL 10 MG TABLET (FP) PO SCH ×2 (09:51→21:11)
[2023-02-22] MEDS: MULTIVITAMINS THER W-MINERALS COMBO TABLET (FP) PO SCH (09:51)
[2023-02-22] MEDS: ALLOPURINOL 300 MG TABLET (FP) PO SCH (09:51)
[2023-02-22] MEDS: DEXAMETHASONE SOD PHOSPHATE 10 MG/1 ML VIAL IVPUSH SCH (09:51)
[2023-02-22] MEDS: QUEtiapine FUMARATE 25 MG TABLET PO SCH (21:11)
[2023-02-23] MEDS: PIPERACILLIN/TAZOB 3.375 GM 3.375 GM in DEXTROSE 5%-WATER - 50 ML IVPB SCH ×3 (01:17→17:12)
[2023-02-23] MEDS: NYSTATIN 100,000 UNIT/GM TOPICAL CREAM 15 GM TUBE TP SCH ×4 (01:18→17:12)
[2023-02-23 06:53] LABS: BASO % 0.3 % (0-2.0); EOS % 4.8 % (0-4.5); HEMATOCRIT 26.4 % (32.4-45.2); HEMOGLOBIN 8.4 GM/dL (10.7-15.3); LYMPH % 13.6 % (8-40); MCH 27.8 pg (25.7-33.7); MCHC 31.7 g/dl (32.0-36.0); MEAN CELL VOLUME 87.8 fl (80-96); MEAN PLT VOLUME 8.8 fl (7.5-11.1); MONO % 8.2 % (3.8-10.2); NEUT % 73.1 % (42.8-82.8); PLATELET COUNT 182 10^3/uL (134-434); RDW 18.6 % (11.6-15.6); WHITE BLOOD COUNT 6.7 K/mm3 (4.0-10.0)
[2023-02-23 07:09] LABS: POTASSIUM 3.3 mmol/L (3.5-5.1)
[2023-02-23 07:16] LABS: CALCIUM 8.6 mg/dL (8.5-10.1)
[2023-02-23 07:17] LABS: ALBUMIN 2.2 g/dl (3.4-5.0)
[2023-02-23 07:20] LABS: CREATININE 0.6 mg/dL (0.55-1.3)
[2023-02-23 07:21] LABS: BILIRUBIN,TOTAL 0.4 mg/dL (0.2-1)
[2023-02-23 08:04] LABS: BLOOD UREA NITROGEN 17.8 mg/dL (7-18)
[2023-02-23] MEDS: MULTIVITAMINS THER W-MINERALS COMBO TABLET (FP) PO SCH (10:00)
[2023-02-23] MEDS: ALLOPURINOL 300 MG TABLET (FP) PO SCH (10:00)
[2023-02-23] MEDS: DEXAMETHASONE SOD PHOSPHATE 10 MG/1 ML VIAL IVPUSH SCH (10:00)
[2023-02-23] MEDS: ASPIRIN COATED 81 MG TABLET.EC PO SCH (10:01)
[2023-02-23] MEDS: MEMANTINE HCL 10 MG TABLET (FP) PO SCH ×2 (10:01→21:09)
[2023-02-23] MEDS: ASCORBIC ACID 250 MG TABLET (FP) PO SCH (10:01)
[2023-02-23] MEDS: HEPARIN NA (PORCINE) 5,000 UNITS/ML 1ML VIAL SQ SCH ×2 (10:01→21:09)
[2023-02-23] MEDS ORDERED: POTASSIUM CHLORIDE ORAL LIQUID 20 MEQ/15 ML PO ONE (15:45)
[2023-02-23 18:06] VITALS: RESP 18
[2023-02-23] MEDS: QUEtiapine FUMARATE 25 MG TABLET PO SCH (21:09)
[2023-02-23] MEDS: guaiFENesin/D-METHORPHAN HB 10 ML UNIT-DOSE CUPS PO PRN (21:09)
[2023-02-24] MEDS: PIPERACILLIN/TAZOB 3.375 GM 3.375 GM in DEXTROSE 5%-WATER - 50 ML IVPB SCH ×2 (02:00→10:12)
[2023-02-24] MEDS: NYSTATIN 100,000 UNIT/GM TOPICAL CREAM 15 GM TUBE TP SCH ×3 (06:28→12:19)
[2023-02-24] MEDS: DEXAMETHASONE SOD PHOSPHATE 10 MG/1 ML VIAL IVPUSH SCH (10:12)
[2023-02-24] MEDS: ALLOPURINOL 300 MG TABLET (FP) PO SCH (10:12)
[2023-02-24] MEDS: ASPIRIN COATED 81 MG TABLET.EC PO SCH (10:12)
[2023-02-24] MEDS: MEMANTINE HCL 10 MG TABLET (FP) PO SCH (10:12)
[2023-02-24] MEDS: ASCORBIC ACID 250 MG TABLET (FP) PO SCH (10:12)
[2023-02-24] MEDS: MULTIVITAMINS THER W-MINERALS COMBO TABLET (FP) PO SCH (10:13)
[2023-02-24] MEDS: HEPARIN NA (PORCINE) 5,000 UNITS/ML 1ML VIAL SQ SCH (10:13)
[2023-02-24 11:01] VITALS: PULSE 86
[2023-02-24] MEDS ORDERED: INSULIN (NOVOLOG) ASPART 100 UNITS/ML 10ML VIAL ONE (12:32)
[2023-02-24] MEDS ORDERED: INSULIN (LEVEMIR) 100 UNITS/ML UNITS SQ ONE (12:32)
[2023-02-24 15:48] VITALS: BP 120/67; TEMP 98.2
== END 2023-02-24 17:01 | DRG 177 ==
LOC: JER 10:59 → JERBED 14:54 → J4W 02-19 09:24
PROVIDERS: ADMIT Internal Medicine; ATTEND Internal Medicine
DX: U07.1 COVID-19 (principal); J12.82 Pneumonia due to coronavirus disease 2019; J96.02 Acute respiratory failure with hypercapnia; R53.2 Functional quadriplegia; I10 Essential (primary) hypertension
CPT/HCPCS: 0241U-QW; 36415; 70450-TC; 71045-TC-FY; 80048; 80053; 81003; 82550; 82553; 82803; 82962; 83605; 83735; 84484; 85025; 85610; 85730; 86140; 86850; 86900; 86901; 87040; 87086; 93005; 93010; 99291; J0248; J1100; J1644